=== PATIENT | female | born 2000 | race American Indian/Alaskan Native ===

== ENCOUNTER 2022-04-25 05:56 | Emergency (ER) | payer SELFPAY ==
[2022-04-25 06:11] VITALS: BP 102/68
--- NOTE | 2022-04-25 07:05 | Emergency Department Report ---
ED Extremity Problem HPI - General Chief complaint: Extremity Injury, Lower Stated complaint: RT KNEE PN-NON-INJ Time Seen by Provider: 04/25/22 06:59 Source: patient, family Mode of arrival: Wheelchair Limitations: No Limitations - History of Present Illness Initial comments: 21 yo AA female c/o R knee pain x 3 months increased x 2 days Denies haveing any direct trauma Deniies any falls or any injuries NO fever or chills Complaint: extremity pain -: Gradual, week(s) Location: lower extremity, knee - Related Data Previous Rx's Medication Instructions Recorded Last Taken Type Amoxicillin/K Clav Tab [Augmentin 1 tab PO Q12HR #20 tab 04/25/22 Unknown Rx 875 mg] Ibuprofen [Motrin] 600 mg PO Q8H PRN #20 tablet 04/25/22 Unknown Rx Allergies Allergy/AdvReac Type Severity Reaction Status Date / Time No Known Allergies Allergy Verified 04/25/22 06:13 ED Review of Systems ROS: Stated complaint: RT KNEE PN-NON-INJ Other details as noted in HPI ED Past Medical Hx - Past Medical History Previous Medical History?: Yes - Surgical History Past Surgical History?: Yes - Social History Smoking Status: Unknown if ever smoked - Medications Home Medications: Home Medications Medication Instructions Recorded Confirmed Last Taken Type Amoxicillin/K Clav Tab [Augmentin 1 tab PO Q12HR #20 tab 04/25/22 Unknown Rx 875 mg] Ibuprofen [Motrin] 600 mg PO Q8H PRN #20 tablet 04/25/22 Unknown Rx ED Physical Exam - General Limitations: No Limitations ED Course Vital Signs 04/25/22 06:10 Temperature 100.4 F H Pulse Rate 112 H Respiratory 18 Rate Blood Pressure 102/68 O2 Sat by Pulse 99 Oximetry Critical care attestation.: If time is entered above; I have spent that time in minutes in the direct care of this critically ill patient, excluding procedure time. ED Disposition Clinical Impression: Strain of knee, Otitis media Disposition: 01 HOME / SELF CARE / HOMELESS Is pt being admited?: No Does the pt Need Aspirin: No Condition: Stable Instructions: Muscle Strain, Asde-to-Tzpc, Muscle Strain Prescriptions: Amoxicillin/K Clav Tab [Augmentin 875 mg] 1 tab PO Q12HR #20 tab Ibuprofen [Motrin] 600 mg PO Q8H PRN #20 tablet PRN Reason: Pain
--- NOTE | 2022-04-25 07:10 | XRay Report ---
RIGHT KNEE, 3 VIEWS INDICATION / CLINICAL INFORMATION: PAIN. COMPARISON: None available. FINDINGS: No fracture or dislocation. Small suprapatellar joint effusion is present. No significant degenerative change. IMPRESSION: Small suprapatellar joint effusion. No significant osseous abnormality. Signer Name: Pilar Valentine MD Signed: 04/25/2022 7:06 AM Workstation Name: [id number]
== END 2022-04-25 08:44 | disposition home or self-care (01) ==
LOC: ED 05:56
DX: S86.811A Strain of other muscle(s) and tendon(s) at lower leg level, right leg, initial encounter (principal); H66.90 Otitis media, unspecified, unspecified ear; Z98.890 Other specified postprocedural states; Z79.899 Other long term (current) drug therapy; X58.XXXA Exposure to other specified factors, initial encounter; Y93.89 Activity, other specified; Y92.89 Other specified places as the place of occurrence of the external cause; Y99.8 Other external cause status
CPT/HCPCS: 99283